=== PATIENT | female | born 1980 | race African-American/Black ===

== ENCOUNTER 2016-12-19 07:41 | Emergency (ER) | payer OTHER ==
[~2016-12-19] VITALS: Ht 160 cm; Wt 73.0 kg
[2016-12-19] MEDS ORDERED: ACETAMINOPHEN 325MG TABLET PO ONE (09:30)
[2016-12-19 11:30] VITALS: BP 118/74
== END 2016-12-19 12:14 | disposition home or self-care (01) ==
LOC: ER 08:41
DX: S63.501A Unspecified sprain of right wrist, initial encounter (principal); Z98.51 Tubal ligation status; W22.03XA Walked into furniture, initial encounter; Y92.018 Other place in single-family (private) house as the place of occurrence of the external cause
CPT/HCPCS: 73090; 73100; 73130; 99284; A4565

== ENCOUNTER 2017-01-15 07:58 | Emergency (ER) | payer OTHER ==
[~2017-01-15] VITALS: Ht 162.6 cm; Wt 73.0 kg
[2017-01-15] MEDS ORDERED: IBUPROFEN 600MG TABLET PO ONE (09:00)
[2017-01-15 10:45] VITALS: BP 114/70
== END 2017-01-15 10:48 | disposition home or self-care (01) ==
LOC: ER 07:58
DX: M54.2 Cervicalgia (principal); M54.9 Dorsalgia, unspecified; M25.562 Pain in left knee; Z98.51 Tubal ligation status; V43.52XA Car driver injured in collision with other type car in traffic accident, initial encounter
CPT/HCPCS: 72040; 72070; 73562; 99284; Z7610

== ENCOUNTER 2018-06-29 09:23 | Emergency (ER) | payer OTHER ==
[~2018-06-29] VITALS: Ht 162.6 cm; Wt 74.0 kg
[2018-06-29] MEDS ORDERED: KETOROLAC 60MG/2ML VIAL IM ONE (09:45)
[2018-06-29 10:08] VITALS: BP 113/52
[2018-06-29 10:29] LABS: CLARITY URINE CLEAR (CLEAR); COLOR URINE YELLOW (YELLOW); KETONES URINE NEGATIVE (NEGATIVE); LEUKOCYTE ESTERASE URINE TRACE (NEGATIVE); NITRITE URINE NEGATIVE (NEGATIVE); OCCULT BLOOD URINE NEGATIVE (NEGATIVE); PROTEIN URINE NEGATIVE (NEGATIVE); SPECIFIC GRAVITY URINE 1.009 (1.005-1.030); UROBILINOGEN URINE 0.2 E.U./dL (0.2-1.0)
== END 2018-06-29 11:36 | disposition home or self-care (01) ==
LOC: ER 09:23
DX: S29.012A Strain of muscle and tendon of back wall of thorax, initial encounter (principal); N39.0 Urinary tract infection, site not specified; Z98.51 Tubal ligation status; X58.XXXA Exposure to other specified factors, initial encounter; Y93.B9 Activity, other involving muscle strengthening exercises; Y92.89 Other specified places as the place of occurrence of the external cause
CPT/HCPCS: 81003; 81025; 96372; 99283; J1885

== ENCOUNTER 2019-05-29 15:39 | Emergency (ER) | payer OTHER ==
[~2019-05-29] VITALS: Ht 172.7 cm; Wt 80.0 kg
[2019-05-29 16:03] VITALS: BP 114/70
[2019-05-29] MEDS ORDERED: FLUORESCEIN SODIUM 1MG/STRIP LEFTEYE ONE (17:30)
[2019-05-29] MEDS ORDERED: TETRACAINE 0.5% OPHTH DROPS 4ML LEFTEYE ONE (17:30)
== END 2019-05-29 18:51 | disposition home or self-care (01) ==
LOC: ER 15:39
DX: H10.9 Unspecified conjunctivitis (principal); Z98.51 Tubal ligation status
CPT/HCPCS: 99283

== ENCOUNTER 2021-05-11 11:29 | Emergency (ER) | payer OTHER ==
[~2021-05-11] VITALS: Ht 167.6 cm; Wt 67.0 kg
[2021-05-11 12:24] VITALS: BP 109/76
== END 2021-05-11 15:18 | disposition left against medical advice (07) ==
LOC: ER 13:29
DX: Z53.21 Procedure and treatment not carried out due to patient leaving prior to being seen by health care provider (principal)
CPT/HCPCS: 81025